=== PATIENT | male | born 1990 ===

== ENCOUNTER → 2023-02-25 20:16 | Outpatient (CLI) | payer OTHER, SELFPAY ==
--- NOTE | 2023-02-25 16:08 | DI.RAD_ITS ---
Exam(s) XR FOOT RT COMPLETE EXAM: XR FOOT RT COMPLETE CLINICAL HISTORY: M79.671 Pain in right foot. TECHNIQUE: 2D digital imaging was performed of the right foot. Three images were obtained. AP, obl ique and lateral views were obtained. COMPARISON: No exams were available for comparison FINDINGS: BONES: No acute fracture is present. No bony destructive lesion is seen. JOINTS: No dislocation present. There are degenerative changes seen at the talonavicular joint. SOFT TISSUE: Normal. IMPRESSION: Degenerative changes of the foot. DATA REPOSITORY: RADIATION DOSE DELIVERED:
== END ==
PROVIDERS: Visit Provider Physician Assistant
DX: M19.071 Primary osteoarthritis, right ankle and foot (principal)
CPT/HCPCS: 73630

== ENCOUNTER 2023-12-23 15:16 | Outpatient (CLI) | payer OTHER, SELFPAY ==
[2024-01-05 14:59] LABS: Specimen WB Whole Blood
== END 2023-12-23 15:17 | disposition home or self-care (01) ==
LOC: LBO 15:16
PROVIDERS: Visit Provider Advanced Practice Midwife
DX: Z34.90 Encounter for supervision of normal pregnancy, unspecified, unspecified trimester (principal)
CPT/HCPCS: 36415; 81220; 81222